=== PATIENT | male | born 1975 | race African-American/Black ===

== ENCOUNTER 2017-08-29 21:12 | Emergency (ER) | payer BC ==
[2017-08-29 21:28] VITALS: PULSE 80; TEMP 98.2; BMI 27.1
--- NOTE | 2017-08-29 21:30 | PDOC ---
Rapid Medical Evaluation Time Seen by Provider: 08/29/17 21:24 Medical Evaluation: 08/29/17 21:24 Pt c/o: recent dx of htn, started meds, today felt generally weak while driving , now asymtomatic , no c/o headache, cp, visual changes, wants to eat something Pt on brief exam: 157/106, lcta Pt ordered for : EKG Pt to proceed to the ED Discharge Disposition - Diagnosis Weakness - Referrals - Patient Instructions - Post Discharge Activity
[2017-08-29 22:19] VITALS: BP 140/86
--- NOTE | 2017-08-29 22:31 | PDOC ---
History of Present Illness - General Chief Complaint: Blood Pressure Problem Stated Complaint: HIGH BP Time Seen by Provider: 08/29/17 21:24 History Source: Patient Exam Limitations: No Limitations - History of Present Illness Initial Comments: 08/29/17 22:30 42 y/o M with no significant PMH who presents to the ED complaining of elevated BP over the past three days. As per pt, he was recently diagnosed with HTN by his PMD, Dr. Vasquez as his BP was 142/90. He was started on lisinopril 5mg qd and has taken it daily for the past three days. During this time, pt also c/o increased upper extremity weakness. 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 States that this is the first time he has felt such fatigue. Otherwise, denies DOUGLAS, fever, chills, chest pain, SOB, or changes in urinary or bowel function. While in the ED, pt BP was initially 157/106. Rechecked ~140/90. PMH: HTN PsxH: denies meds: lisinopril 5mg PO qd allergies: NKDA FH: denies Past History - Past Medical History Allergies/Adverse Reactions: Allergies Allergy/AdvReac Type Severity Reaction Status Date / Time No Known Allergies Allergy Verified 08/29/17 21:25 COPD: No HTN: Yes - Suicide/Smoking/Psychosocial Hx Smoking History: Never smoked Have you smoked in the past 12 months: No Information on smoking cessation initiated: No Hx Alcohol Use: No Drug/Substance Use Hx: No Substance Use Type: None Review of Systems - Review of Systems Able to Perform ROS?: Yes Is the patient limited [place] proficient: No Constitutional: Yes: Weakness Musculoskeletal: Yes: Muscle Weakness All Other Systems: Reviewed and Negative *Physical Exam - Vital Signs Last Vital Signs Temp Pulse Resp BP Pulse Ox 98.2 F 80 18 140/86 99 08/29/17 21:26 08/29/17 21:26 08/29/17 21:26 08/29/17 22:18 08/29/17 21:26 - Physical Exam General Appearance: Yes: Nourished HEENT: positive: EOMI, GRISEL Neck: positive: Tender, Supple Respiratory/Chest: positive: Chest Tender, Lungs Clear Cardiovascular: positive: Regular Rhythm, Regular Rate, S1, S2 Vascular Pulses: Dorsalis-Pedis (R): 2+, Doralis-Pedis (L): 2+ Gastrointestinal/Abdominal: positive: Normal Bowel Sounds, Flat Extremity: positive: Normal Range of Motion Neurologic: positive: supervisor polishing II-XII NML intact Medical Decision Making - Medical Decision Making 08/29/17 23:08 42 y/o M with no significant PMH who presents to the ED complaining of elevated BP over the past three days. Will do CXR to r/o any other pathology for weakness , elevated BP. 08/30/17 01:01 Will send home with Cardio referral - Dr. Estraad CXR- mild cardiomegaly *DC/Admit/Observation/Transfer Diagnosis at time of Disposition: Weakness - Discharge Dispostion Disposition: HOME Condition at time of disposition: Stable Admit: No - Referrals Referrals: ON STAFF,NOT [Primary Care Provider] - Cj Estrada MD [Staff Physician] - - Patient Instructions Additional Instructions: You were recently in the emergency room due to elevated blood pressure. While you were here, we rechecked your blood pressure and it was mildly elevated at 140/90 mmHg. Please follow up with a hospitalist physician, Dr. Estrada who can help monitor your blood pressure. You can schedule an appointment at the following phone number: [phone]. If you develop chest pain, shortness of breath, or severe pain, please go to the hospital. We hope you feel better soon. - Post Discharge Activity
--- NOTE | 2017-08-30 00:59 | PDOC ---
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 Pt has HTN now. Nobody in the family has HTN. Pt was recently started on Lisinoprl 5mg; He has BP systolic 120s in the AM, but by evening and night his systolic is 140s. Pt is anxious. I explained to him that htn is likely diet related, as he admits to eating salty foods at lunch and dinner. - Physicial Exam PE: 08/30/17 05:52 Agree with resident exam. - Medical Decision Making 08/30/17 05:52 Pt has normal EKG and CXR has borderline enlarged heart. Pt will go home with same meds as he was prescribed: 5mg Lisinopril. Again we discussed the importance of diet and exercise.
--- NOTE | 2017-08-30 10:00 | EKG ---
Test Reason : Blood Pressure : / mmHG Vent. Rate : 071 BPM Atrial Rate : 071 BPM P-R Int : 184 ms QRS Dur : 088 ms QT Int : 362 ms P-R-T Axes : 033 027 027 degrees QTc Int : 393 ms NORMAL SINUS RHYTHM NONSPECIFIC T WAVE ABNORMALITY RSR' OR QR PATTERN IN V1 SUGGESTS RIGHT VENTRICULAR CONDUCTION DELAY CLINICAL CORRELATION IS RECOMMENDED NO PREVIOUS ECGS AVAILABLE Confirmed by RAMSEY GREENE MD ([id number]) on 08/30/2017 10:00:12 AM Referred By: Confirmed By:RAMSEY GREENE MD
== END 2017-08-30 01:53 | disposition home or self-care (01) ==
LOC: JER 21:12
DX: I10 Essential (primary) hypertension (principal)
CPT/HCPCS: 71046-TC-FY; 93005; 93010; 99281-25